=== PATIENT | male | born 1960 | race Caucasian/White ===

== ENCOUNTER 2024-01-01 10:25 | Day surgery (SDC) | payer MEDICARE ==
[~2024-01-01] VITALS: Ht 188 cm; Wt 99.4 kg
[~2024-01-01 10:25] MED LIST: LR 1,000 ML IV SCH; Ondansetron 4 MG/2 ML VIAL IV PRN
[2024-01-01] MEDS ORDERED: NORVASC 5MG5 MG/TAB PO (10:47)
[2024-01-01] MEDS ORDERED: SINGULAIR 110 MG/TAB PO (10:47)
[2024-01-01] MEDS ORDERED: ZYRTEC 10MG10 MG PO (10:48)
[2024-01-01] MEDS ORDERED: NASACORT OTC NS (10:48)
[2024-01-01 10:49] VITALS: BP 150/97; PULSE 80; TEMP 97.2
[2024-01-01 11:45] VITALS: BP 125/84; PULSE 64; TEMP 97.5
[2024-01-01 12:00] VITALS: BP 128/69; PULSE 68
--- NOTE | 2024-01-01 12:20 | NUR ---
1145 RETURNS TO ROOM 4 PER CART. AWAKE, ALERT. RESP UNLABORED. AMBULATES TO RECLINER WITH STANDBY ASSIST. DENIES NAUSEA OR ABD PAIN. VITAL SIGNS OBTAINED. CALL LIGHT AT SIDE. IN ROOM 1200 TOLERATES PO WATER WITHOUT NAUSEA, DISCHARGE INSTRUCTIONS REVIEWED. PATIENT VERBALIZES UNDERSTANDING. COPY PROVIDED IN DISCHARGE FOLDER [address] DR[address]TH HERE TO VISIT WITH PATIENT 1214 DRESSES SELF
== END 2024-01-01 12:22 | disposition home or self-care (01) ==
LOC: SDCO 10:25
DX: Z12.11 Encounter for screening for malignant neoplasm of colon (principal); K57.30 Diverticulosis of large intestine without perforation or abscess without bleeding
CPT/HCPCS: J2704; J7120